=== PATIENT | male | born 1990 ===

== ENCOUNTER → 2025-03-28 14:56 | Outpatient (BNVA) | payer BC, SELFPAY | PROVIDERS: PCP Nurse Practitioner Family; Visit Provider Specialist | DX: M25.562 Pain in left knee (principal); G89.29 Other chronic pain | CPT/HCPCS: 73560; 73565 ==

== ENCOUNTER → 2025-04-09 13:59 | Outpatient (BNVA) | payer BC, SELFPAY | PROVIDERS: PCP Nurse Practitioner Family; Visit Provider Specialist | DX: M25.512 Pain in left shoulder (principal) | CPT/HCPCS: 73030 ==

== ENCOUNTER 2025-04-25 14:28 | Outpatient (CLI) | payer BC, SELFPAY ==
--- NOTE | 2025-04-25 14:30 | MR_ITS ---
WS: [id number] MRI LEFT KNEE NONCONTRAST TECHNIQUE: Axial PD, coronal PD fat sat, coronal PD, sagittal PD, and sagittal PD fat-sat images obtained. CLINICAL INFORMATION: left knee pain COMPARISON: None. FINDINGS: Distal quadriceps and patella tendons are intact. Normal ACL and PCL. No acute meniscal tears. Hypertrophic patella. Small amount of edema along the inferior lateral pole of the patella likely due to contusion from recent trauma. No visualized fractures. Additional contusion with edema involving the inferior medial patella. Medial and lateral patellar retinaculum appear intact. Minimal effusion. Grade II chondromalacia patella. Normal bone marrow signal in the femoral condyles and tibial plateau. Medial and lateral collateral ligaments appear intact. Normal popliteal fossa. Tiny popliteal cyst measuring 8 mm. No other acute findings. MR/MR knee LT wo con* [id number] IMPRESSION: 1. Edema compatible with contusion in the inferior lateral pole of the patella and inferior medial patella. No definite visualized fractures. Prepatellar sof t tissue edema. 2. Grade II chondromalacia patella. 3. ACL and PCL appear intact. 4. No acute appearing meniscal tears. 5. No other acute findings. Outbridge grading: grade II: blister-like swelling/fraying of articular cartila ge extending to surface
== END 2025-04-25 14:29 | disposition home or self-care (01) ==
PROVIDERS: PCP Nurse Practitioner Family; Visit Provider Specialist
DX: M25.562 Pain in left knee (principal); M22.8X2 Other disorders of patella, left knee; M22.42 Chondromalacia patellae, left knee
CPT/HCPCS: 73721